=== PATIENT | male | born 1950 | race Caucasian/White ===

== ENCOUNTER 2023-11-07 11:35 | Emergency (ER) | payer MEDICARE, SELFPAY ==
[2023-11-07] VITALS (11 sets, daily range): BP systolic 153–169; BP diastolic 77–89; PULSE 93–112; RESP 17–28; TEMP 36.4; O2SAT 95–99; BMI 23.7
--- NOTE | 2023-11-07 11:57 | DI.RAD.S_ITS ---
PROCEDURE: XR CHEST 1V INDICATIONS: Shortness of breath TECHNIQUE: One view of the chest was acquired. COMPARISON: None. FINDINGS: Surgical changes and devices: None. Lungs and pleura: Lungs are clear. No pleural effusions or pneumothorax. Mediastinum: Mediastinal contours appear normal. Heart size is normal. Bones and chest wall: No suspicious bony lesions. Overlying soft tissues appear unremarkable. IMPRESSION: No acute pulmonary process. Dictated by: Katie Pettit M.D. on 11/07/2023 at 13:24 Approved by: Katie Pettit M.D. on 11/07/2023 at 13:24
[2023-11-07 12:33] LABS: Prothrombin Time 11.4 SECONDS (9.4-12.5)
[2023-11-07 12:40] LABS: Alanine Aminotransferase 35 IU/L (<50); Albumin Globulin Ratio 0.9 (1.0-2.8); Alkaline Phosphatase 89 U/L (38-126); Aspartate Aminotransferase 25 IU/L (17-59); BUN Creatinine Ratio 13.8 (6-22); Bilirubin Total 0.6 mg/dL (0.2-1.3); Blood Urea Nitrogen 66 mg/dL (9-20); Calcium 9.5 mg/dL (8.4-10.2); Carbon Dioxide 13 mmol/L (22-32); Chloride 109 mmol/L (98-107); Estimated Glomerular Filt Rate 12 mL/min (>60); Globulin 4.3 g/dL (1.7-4.1); Glucose 168 mg/dL (80-110); HEMOLYSIS < 15 (0-50); Potassium 4.1 mmol/L (3.4-5.1); Sodium 136 mmol/L (137-145); Total Protein 8.3 g/dL (6.3-8.2)
[2023-11-07 12:42] LABS: Add Manual Diff / Slide Review YES; Hematocrit 34.9 % (41-53); Hemoglobin 12.1 g/dL (13.5-17.5); Mean Corpuscular HGB Conc 34.6 % (30-36); Mean Corpuscular Hemoglobin 32.7 PG (26-34); Mean Corpuscular Volume 94.4 fL (80-100); Platelet Count 493 X10^3/uL (150-400); Red Blood Cell Count 3.69 X10^6/uL (4.5-5.9)
[2023-11-07 12:51] LABS: NT-proBNP (BNP-Adult 18+) 2150 pg/mL (<125)
[2023-11-07 13:02] LABS: Neutrophils Absolute Manual 15480 /uL (3000-5900); Total Cells Counted 100
[2023-11-07 13:03] LABS: Influenza A - CEPHEID Flu A POSITIVE (NEGATIVE); Influenza B - CEPHEID Flu B NEGATIVE (NEGATIVE); Respiratory Syncytial Virus Negative (Negative)
[2023-11-07 13:04] LABS: RBC Morphology Normal Morphology
[2023-11-07 13:09] LABS: COVID-19 CEPHEID 4-PLEX PCR Negative (Negative)
[2023-11-07 14:48] LABS: Urine Volume 10mL (spun)
[2023-11-07 14:50] LABS: Bacteria Urine Moderate (10-30); RBC Urine None Seen (0-5/HPF); Squamous Epithelial Cell Urine 0-1 /HPF (0-5/HPF); WBC Urine 0-1/HPF (0-5/HPF)
[2023-11-07 14:51] LABS: Culture Indicated Urine Cult Not Indicated
--- NOTE | 2023-11-07 15:25 | ED.SOB ---
HPI - SOB/Dyspnea General Chief Complaint: Shortness of Breath/Dyspnea Stated Complaint: SOB, Cough, Time Seen by Provider: 11/07/23 15:23 Source: patient and family Mode of arrival: Ambulatory Limitations: no limitations History of Present Illness HPI Narrative: 73-year-old male with known chronic kidney disease stage 4, hypertension with complaint of nonproductive cough, shortness of breath, decreased appetite with weight loss of 20 lb, patient has had sweats intermittently but no documented fevers, patient notes no chest pain or pressure. Has had shortness of breath. States cough has been keeping him up all night. Has been nonproductive. Patient denies any nausea or vomiting. No diarrhea constipation. Had some painful urination earlier today but has resolved. No swelling in extremities. Patient's symptoms started on October 26 has been approximately 12 days since symptom onset without any improvement. Patient notes he takes medication for hypertension, has not taken his medications today. States no anticoagulants. 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 No known drug allergies. Remote history of hernia repair 20 years ago. No tobacco, alcohol or recreational drugs. Related Data Previous Rx's Medication Instructions Recorded benzonatate 100 mg capsule 100 mg PO TID PRN cough #30 caps 11/07/23 doxycycline hyclate 100 mg tablet 100 mg PO BID #20 tabs 11/07/23 Allergies Allergy/AdvReac Type Severity Reaction Status Date / Time No Known Drug Allergies Allergy Verified 11/07/23 11:49 Review of Systems Review of Systems ROS Unobtainable: All systems reviewed & are unremarkable except as noted in HPI and below Patient History Social History Smoking Status: Never smoker Smoking Status: Never smoker Substance Use Type: does not use Exam Narrative Exam Narrative: GENERAL: Alert and oriented x three, male in mild distress HEENT: Head normocephalic, atraumatic, EOMI, pupils reactive, no nasal congestion, face symmetric, moist mucous membranes NECK: Supple, full range of motion CARDIOVASCULAR: Regular rate and rhythm without murmurs, rubs or gallops. No JVD. No edema bilateral lower extremities. RESPIRATORY: Breath sounds equal bilaterally, no wheezes rales or rhonchi. No tachypnea. Patient has persistent dry cough on examination. ABDOMEN: Soft, nontender. Normoactive bowel sounds all 4 quadrants. No guarding or rebound, rigidity, no mass : No CVA tenderness EXTREMITIES: Normal range of motion, no clubbing or edema. Neurovascularly intact NEUROLOGICAL: Cranial nerves II through XII grossly intact. Moving all extremities SKIN: Warm, dry, no petechiae, no rashes or lesions. Initial Vital Signs Initial Vital Signs: Vital Signs Temperature 97.6 F 11/07/23 11:49 Pulse Rate 112 H 11/07/23 11:49 Respiratory Rate 18 11/07/23 11:49 Blood Pressure 166/83 H 11/07/23 11:49 Pulse Oximetry 97 11/07/23 11:49 Oxygen Delivery Method Room Air 11/07/23 11:49 Course Orders Ordered: ED Orders 11/07/23 11:55 Covid-19 + FLU A/B + RSV - PCR Stat 11/07/23 11:57 XR chest 1V Stat EKG-12 Lead Stat Measure peak expiratory flow ONCE RT Consult Eval and Treat NOW 11/07/23 12:17 Complete Blood Count AUTO DIFF Stat Comprehensive Metabolic Panel Stat Lactate (Lactic Acid) Stat NT-proBNP (BNP-Adult 18+) Stat Prothrombin Time INR Stat Troponin I Stat 11/07/23 14:22 Urine Microscopic Stat Vital Signs Vital signs: Vital Signs - 8 hr 11/07/23 11:49 11/07/23 12:03 11/07/23 12:19 Temperature 97.6 F Pulse Rate 112 H 110 H 103 H Respiratory Rate 18 28 H Blood Pressure 166/83 H Pulse Oximetry 97 99 Oxygen Delivery Method Room Air 11/07/23 12:19 11/07/23 12:30 11/07/23 12:30 Temperature Pulse Rate 99 H Respiratory Rate 27 H Blood Pressure 158/89 H 155/87 H Pulse Oximetry 96 Oxygen Delivery Method 11/07/23 13:00 11/07/23 13:00 11/07/23 13:30 Temperature Pulse Rate 97 H Respiratory Rate 27 H Blood Pressure 156/84 H 158/77 H Pulse Oximetry 96 Oxygen Delivery Method 11/07/23 13:30 11/07/23 14:00 11/07/23 14:00 Temperature Pulse Rate 99 H 97 H Respiratory Rate 17 22 Blood Pressure 155/80 H Pulse Oximetry 95 96 Oxygen Delivery Method 11/07/23 14:30 11/07/23 14:30 11/07/23 15:00 Temperature Pulse Rate 98 H Respiratory Rate 25 H Blood Pressure 153/81 H 156/81 H Pulse Oximetry 95 Oxygen Delivery Method 11/07/23 15:00 11/07/23 15:30 11/07/23 15:30 Temperature Pulse Rate 96 H 93 H Respiratory Rate 28 H 28 H Blood Pressure 159/81 H Pulse Oximetry 96 95 Oxygen Delivery Method 11/07/23 16:00 11/07/23 16:00 Temperature Pulse Rate 96 H Respiratory Rate 26 H Blood Pressure 169/87 H Pulse Oximetry 96 Oxygen Delivery Method MDM - SOB/Dyspnea Lab Data 11/07/23 12:17 11/07/23 12:17 Labs: Lab Results 11/07/23 11/07/23 11/07/23 Range/Units 11:55 12:17 14:22 WBC 18.0 H (4.5-11.0) X10^3/uL RBC 3.69 L (4.5-5.9) X10^6/uL Hgb 12.1 L (13.5-17.5) g/dL Hct 34.9 L (41-53) % MCV 94.4 (80-100) fL MCH 32.7 (26-34) PG MCHC 34.6 (30-36) % RDW 13.0 (11.6-14.8) % Plt Count 493 H (150-400) X10^3/uL Neut % (Auto) Not Reportable Lymph % (Auto) Not Reportable [place] % (Auto) Not Reportable Eos % (Auto) Not Reportable Baso % (Auto) Not Reportable Lymph # (Auto) Not Reportable [place] # (Auto) Not Reportable Baso # (Auto) Not Reportable Total Counted 100 Seg Neutrophils % 86.0 H (38-70) % Lymphocytes % (Manual) 6.0 L (25-45) % Monocytes % (Manual) 8.0 (2-11) % Neutrophils # (Manual) 22430 H (4240-0410) /uL RBC Morphology Normal morphology PT 11.4 (9.4-12.5) SECONDS INR 1.0 (0.9-1.3) Sodium 136 L (137-145) mmol/L Potassium 4.1 (3.4-5.1) mmol/L Chloride 109 H (98-107) mmol/L Carbon Dioxide 13 L (22-32) mmol/L BUN 66 H (9-20) mg/dL Creatinine 4.80 H (0.66-1.25) mg/dL Estimated GFR 12 L (>60) mL/min BUN/Creatinine Ratio 13.8 (6-22) Glucose 168 H (80-110) mg/dL Lactate 1.0 (0.7-2.1) mmol/L Calcium 9.5 (8.4-10.2) mg/dL Total Bilirubin 0.6 (0.2-1.3) mg/dL AST 25 (17-59) IU/L ALT 35 (<50) IU/L Alkaline Phosphatase 89 (38-126) U/L Troponin I 0.030 (0.01-0.034) ng/mL NT-Pro-B Natriuret Pep 2150 H (<125) pg/mL Total Protein 8.3 H (6.3-8.2) g/dL Albumin 4.0 (3.5-5.0) g/dL Globulin 4.3 H (1.7-4.1) g/dL Albumin/Globulin Ratio 0.9 L (1.0-2.8) Urine RBC None seen (0-5/HPF) Urine WBC 0-1/hpf (0-5/HPF) Ur Squamous Epith Cells 0-1 /hpf (0-5/HPF) Urine Bacteria Moderate (10-30) H (None) Ur Culture Indicated? Cult not indicated Vol Urine Centrifuged 10ml (spun) SARS-CoV-2 (PCR) Negative (Negative) Influenza A (RT-PCR) Flu a positive H (NEGATIVE) Influenza B (RT-PCR) Flu b negative (NEGATIVE) RSV (PCR) Negative (Negative) Urine Dip Bedside Urine Glucose Negative Bedside Urine Bilirubin - Negative Bedside Urine Ketone - Negative Urine Specific [place] 1.025 Bedside Urine Occult Blood +++ Bedside Urine pH 6.0 Bedside Urine Protein +++ 300 Bedside Urine Urobilinogen - Negative Bedside Urine Nitrite - Negative Bedside Urine Leukocytes - Negative Esterase Imaging Data Chest x-ray: Radiologist's Impression: Close Chest X-Ray (Signed) Katie Pettit - 11/07/23 Launch?[address] [address] XRay Report Signed Patient: Gurpreet Mckenzie MR#: [id number] : 1950 Acct:[id number] Age/Sex: 73 / M Date of Service: 11/07/23 Loc: ED Accession Number: [id number] Procedure: XR chest 1V Ordering Provider: Alicia Martinez D.O. PROCEDURE: XR CHEST 1V INDICATIONS: Shortness of breath TECHNIQUE: One view of the chest was acquired. COMPARISON: None. FINDINGS: Surgical changes and devices: None. Lungs and pleura: Lungs are clear. No pleural effusions or pneumothorax. Mediastinum: Mediastinal contours appear normal. Heart size is normal. Bones and chest wall: No suspicious bony lesions. Overlying soft tissues appear unremarkable. IMPRESSION: No acute pulmonary process. Dictated by: Katie Pettit M.D. on 11/07/2023 at 13:24 Approved by: Katie Pettit M.D. on 11/07/2023 at 13:24 ECG Data Attestation: I personally reviewed and interpreted this ECG as follows: Prior ECG tracings: not available for review Interpretation: Sinus rhythm rate of 99 [place] 194 QRS of [address] No acute [address] elevation. Some T-wave inversion lateral leads V3 through V6. RSR present in 2 3 and AVF. No priors for comparison. MDM Narrative Medical decision making narrative: 73-year-old male with known chronic kidney disease stage 4 GFR today is 12 his last check was 17 per patient. Patient has had symptoms since the 26 October 2011 days total without any improvement of symptoms in continuing to worsen. He has a white count of 18, slightly tachycardic, hemoglobin is appropriate at 12 platelets are 493. Patient does have 86% neutrophils. INR was appropriate. Electrolytes are appropriate 4.1 potassium in his sodium of 136 BUN is 66 with a creatinine of 4.8, CO2 is 13 with a glucose of 168. Troponin is 0.030 and BNP is 21 50. Patient's chest x-ray is negative for acute change or edema. Patient's BNP maybe falsely elevated from his chronic kidney disease. He does not appear to be fluid overloaded and they note 20 lb weight loss. Patient does have some protein and blood in his urine and moderate bacteria but no nitrates leuks or other changes. We will send for culture. Patient is positive on respiratory panel for influenza A. Discussed with patient and family he has had 12 days of symptoms without any improvement would recommend starting an oral antibiotic for clinical pneumonia with an elevated white count persistent sweats. We will also give prescription for oral antitussive. Discussed return precautions with patient and family. Discharge Plan Departure Patient Disposition: Home Clinical Impression: Pneumonia, Chronic kidney disease (CKD), Influenza A Activity Restrictions/Additional Instructions: Your respiratory panel was positive for influenza A, but your symptoms have been persistent for the past 12 days without improvement. I suspect you are developing a bacterial pneumonia. Please take antibiotics until completed. Take 1 tablet every 12 hours times 10 days. You may take Tessalon Perles 1 tablet every 8 hours as needed for cough. Prescription sent to [facility] in [place]. Please return for fevers, new or worsening chest pain, increasing shortness of breath, lightheadedness or passing out, new swelling in your extremities, persistent vomiting or other new or concerning changes. Prescriptions: New doxycycline hyclate 100 mg tablet 100 mg PO BID Qty: 20 0RF benzonatate 100 mg capsule 100 mg PO TID PRN (Reason: cough) Qty: 30 0RF Stand Alone Forms: Patient Portal/API
== END 2023-11-07 16:25 | disposition home or self-care (01) ==
PROVIDERS: Emergency Provider Emergency Medicine
DX: J18.9 Pneumonia, unspecified organism (principal); J10.1 Influenza due to other identified influenza virus with other respiratory manifestations; N18.9 Chronic kidney disease, unspecified; Z20.822 Contact with and (suspected) exposure to COVID-19
CPT/HCPCS: 0241U; 36415; 71045; 80053; 81003; 81015; 83605; 83880; 84484; 85007; 85025; 85610; 93005; 99283; 99284